=== PATIENT | male | born 1990 | race Asian ===

== ENCOUNTER 2020-06-29 16:59 | Emergency (ER) | payer SELFPAY ==
[~2020-06-29] VITALS: Ht 170.2 cm; Wt 165.9 kg
--- NOTE | 2020-06-29 17:40 | NUR ---
TASK RN: FIRST CONTACT WITH PT. PT RESTING, SUPINE IN GURNEY IN NO APPARENT DISTRESS. PT REPORTS SUDDEN ONSET SUBSTERNAL CHEST TIGHTNESS WHILE STANDING OUTSIDE HELPING HIS DAD UNLOCK HIS CAR. TIGHTNESS RADIATED ACROSS CHEST; PT ENDORSES ASSOCIATED SOB AND DIAPHORESIS. EPISODE LASTED APPROX 15MIN AND NOW REPORTS A "SLIGHT" TIGHTNESS WHICH IS RELEIVED WITH LAYING FLAT. HX OF DM2 AND HTN; DENIES SIGNIFICANT CARDIAC OR PULMONARY HX. BP/SPO2/ECG MONITORING IN PLACE. SINUS TACH ON MONITOR, HR 106. CHEST NON-TENDER TO PALPATION. DENIES PRODUCTIVE COUGH/FEVER/TRAUMA/SYNCOPE. NO ASA HAT BODY SORTER.
[2020-06-29 17:45] VITALS: BP 147/89
[2020-06-29] MEDS ORDERED: METF500T17 PO (17:51)
--- NOTE | 2020-06-29 19:26 | NUR ---
PT LEFT WITHOUT GETTING DC PAPERWORK
== END 2020-06-29 19:28 ==
LOC: ED 18:40
DX: F41.1 Generalized anxiety disorder (principal); R06.00 Dyspnea, unspecified; R42 Dizziness and giddiness; R00.0 Tachycardia, unspecified
CPT/HCPCS: 93005; 99283